=== PATIENT | male | born 1980 | race Two or more races ===

== ENCOUNTER 2016-04-07 15:26 | Emergency (ER) | payer SELFPAY ==
[~2016-04-07] VITALS: Ht 175.3 cm; Wt 113.4 kg
[2016-04-07] MEDS ORDERED: ACYCLOVIR 400 MG TAB PO ONE (16:30)
[2016-04-07 18:15] VITALS: BP 145/90
[2016-04-07] MEDS ORDERED: cefTRIAXone W LIDOCAINE 1 GM IM IM ONE (18:15)
[2016-04-07] MEDS ORDERED: cefTRIAXone SOD 1,000 MG VL ONE (18:17)
[2016-04-07] MEDS ORDERED: methylPREDNISolone SOD SUCC 125 MG/2 ML VL IM ONE (18:45)
== END 2016-04-07 18:55 | disposition home or self-care (01) ==
LOC: ER 15:29
DX: L03.211 Cellulitis of face (principal); G51.0 Bell's palsy; H92.02 Otalgia, left ear; Z72.0 Tobacco use
CPT/HCPCS: 70450; 96372; 99284; J0696; J2930

== ENCOUNTER 2017-12-25 17:55 | Emergency (ER) | payer SELFPAY ==
[~2017-12-25] VITALS: Ht 175.3 cm; Wt 120.2 kg
[2017-12-25 18:05] VITALS: BP 146/87
[2017-12-25] MEDS ORDERED: ACETAMINOPHEN/CODEINE#3 (300/30mg) TAB PO ONE (21:00)
[2017-12-25] MEDS ORDERED: methylPREDNISolone SOD SUCC 125 MG/2 ML VL IM ONE (21:00)
== END 2017-12-25 21:05 | disposition home or self-care (01) ==
LOC: ER 17:55
DX: J06.9 Acute upper respiratory infection, unspecified (principal)
CPT/HCPCS: 96372; 99283; J2930

== ENCOUNTER 2019-04-26 08:15 | Emergency (ER) | payer MEDICAID ==
[~2019-04-26] VITALS: Ht 180.3 cm; Wt 113.4 kg
[2019-04-26 08:46] LABS: Basophils # (auto) 0.1 uL; Basophils % (auto) 0.5 % (0.0-2.0); Eosinophils # (auto) 0.1 uL; Eosinophils % (auto) 1.3 % (0.0-7.0); Hematocrit 40.8 % (41.0-53.0); Lymphocytes # (auto) 1.4 uL; Lymphocytes % (auto) 13.6 % (10.0-50.0); Mean Corpuscular Hemoglobin 30.7 pg (28.0-32.0); Mean Corpuscular Hgb Conc. 34.5 g/dL (32.0-36.0); Mean Corpuscular Volume 89.1 fL (80.0-100.0); Monocytes # (auto) 0.8 uL; Monocytes % (auto) 7.8 % (0.0-12.0); Neutrophils # (auto) 8.1 uL; Neutrophils % (auto) 76.8 % (37.0-80.0); Platelet Count (auto) 239 10^3/uL (140-450); Red Blood Cells 4.57 10^6/uL (4.5-5.90); Red Cell Distribution Width 13.1 % (11.8-14.3); White Blood Cell 10.6 10^3/uL (4.4-10.8)
[2019-04-26] MEDS ORDERED: SODIUM CHLORIDE 0.9% 1,000 ML IV ONE (08:53)
[2019-04-26 09:03] LABS: Albumin 3.8 g/dL (3.4-5.0); Anion Gap 5 (5-15); Blood Urea Nitrogen 12 mg/dL (7-18); Calcium 8.7 mg/dL (8.5-10.1); Carbon Dioxide 24 mmol/L (21-32); Chloride 106 mmol/L (98-107); Glucose 79 mg/dL (74-106); Potassium 3.9 mmol/L (3.5-5.1); Sodium 135 mmol/L (136-145)
[2019-04-26 09:09] LABS: Alanine Aminotransferase 42 U/L (16-61); Alkaline Phosphatase 59 U/L (45-117); Aspartate Aminotransferase 28 U/L (15-37); BUN/Creatinine Ratio 11.4; Bilirubin, Total 0.4 mg/dL (0.2-1.0); GFR African American 102 mL/min; GFR Non-African American 84 mL/min; Total Protein 8.6 g/dL (6.4-8.2)
[2019-04-26 10:41] VITALS: BP 109/63
== END 2019-04-26 11:10 | disposition home or self-care (01) ==
LOC: ER 08:15
DX: R07.89 Other chest pain (principal); R05 Cough; R00.2 Palpitations; F17.210 Nicotine dependence, cigarettes, uncomplicated
CPT/HCPCS: 36415; 71046; 80053; 81002; 83735; 84443; 84484; 85025; 85379; 93005; 99285; J7030

== ENCOUNTER 2024-01-06 03:22 | Emergency (ER) | payer MEDICAID ==
[~2024-01-06] VITALS: Ht 175.3 cm; Wt 131.8 kg
[2024-01-06 03:47] LABS: Basophils # (auto) 0.1 10 ^3/uL (0-0.2); Basophils % (auto) 0.8 % (0.0-2.0); Eosinophils # (auto) 0.1 10 ^3/uL (0-0.8); Eosinophils % (auto) 1.2 % (0.0-7.0); Hematocrit 40.7 % (41.0-53.0); Hemoglobin 13.8 g/dL (13.5-17.5); Lymphocytes # (auto) 2.9 10 ^3/uL (0.4-5.4); Lymphocytes % (auto) 24.2 % (10.0-50.0); Mean Corpuscular Hemoglobin 31.1 pg (28.0-32.0); Mean Corpuscular Hgb Conc. 33.9 g/dL (32.0-36.0); Mean Corpuscular Volume 91.7 fL (80.0-100.0); Monocytes % (auto) 8.4 % (0.0-12.0); Neutrophils # (auto) 7.8 10 ^3/uL (1.6-8.6); Neutrophils % (auto) 65.4 % (37.0-80.0); Platelet Count (auto) 276 10^3/uL (140-450); Red Blood Cells 4.44 10^6/uL (4.5-5.90); Red Cell Distribution Width 13.3 % (11.8-14.3); White Blood Cell 11.9 10^3/uL (4.4-10.8)
[2024-01-06 04:06] LABS: Alanine Aminotransferase 75 U/L (7-40); Alkaline Phosphatase 65 U/L (46-116); Anion Gap 7 (5-15); Aspartate Aminotransferase 72 U/L (13-40); BUN/Creatinine Ratio 15.2 (10.0-20.0); Bilirubin, Total 1.2 mg/dL (0.2-1.0); Blood Urea Nitrogen 14 mg/dL (9-23); Calcium 10.3 mg/dL (8.7-10.4); Carbon Dioxide 24 mmol/L (20-31); Chloride 105 mmol/L (98-107); Glucose 114 mg/dL (74-106); Potassium 3.4 mmol/L (3.5-5.1); Sodium 136 mmol/L (136-145); Total Protein 8.6 g/dL (5.7-8.2)
[2024-01-06 04:21] LABS: INR 1.06 (0.9-1.15); Partial Thromboplastin Time 26.5 SEC (24.5-34.5); Prothrombin Time 11.2 sec (9.3-11.8)
[2024-01-06 04:27] VITALS: BP 147/92; PULSE 103; RESP 15; TEMP 98.6; O2SAT 98
[2024-01-06 05:10] VITALS: PULSE 111
== END 2024-01-06 05:21 | disposition home or self-care (01) ==
LOC: ER 03:22
DX: R07.89 Other chest pain (principal); E66.01 Morbid (severe) obesity due to excess calories; F17.210 Nicotine dependence, cigarettes, uncomplicated; F15.90 Other stimulant use, unspecified, uncomplicated; Z68.41 Body mass index [BMI] 40.0-44.9, adult
CPT/HCPCS: 36415; 71045; 80053; 83880; 84484; 85025; 85610; 85730; 93005